=== PATIENT | male | born 1995 | race Two or more races ===

== ENCOUNTER 2019-10-22 20:25 | Observation (INO) | payer OTHER ==
[~2019-10-22] VITALS: Ht 170.2 cm; Wt 62.7 kg
--- NOTE | 2019-10-22 20:29 | NUR ---
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
[2019-10-22] MEDS ORDERED: ASPIRIN 81 MG TABLET EC ONE (20:43)
[2019-10-22] MEDS ORDERED: ASPIRIN 81 MG TABLET CHEW ONE (20:43)
--- NOTE | 2019-10-22 20:45 | NUR ---
EKG DONE IN [facility], MEDICATED WITH ASPIRIN.
[2019-10-22] MEDS ORDERED: ASPIRIN 81 MG TABLET CHEW PO ONE (21:00)
[2019-10-22] MEDS ORDERED: PLEASE ENTER ALLERGIES MC SCH (21:00)
--- NOTE | 2019-10-22 21:01 | NUR ---
lab to bs for draw.
--- NOTE | 2019-10-22 21:11 | NUR ---
pt to ed for sob afterworking out for first time in months. pt presents with hr in 120s-140s and is very anxious and restless. pt connected to all monitors. vss. ua and blood sent to lab. awaiting results and edmd assessment.
[2019-10-22 21:17] LABS: MD YES; MEAN CORPUSCULAR HEMOGLOBIN 29.3 pg (27.5-34.5); MEAN CORPUSCULAR HGB CONC 33.2 g/dL (33.2-36.2); MEAN CORPUSCULAR VOLUME 88.2 fL (81-97); MEAN PLATELET VOLUME 9.2 fL (7.4-10.4); PLATELET COUNT 281 x10^3/uL (130-400); RED BLOOD COUNT 6.02 x10^6/uL (4.38-5.82); RED CELL DISTRIBUTION WIDTH 13.4 % (9.4-14.8)
[2019-10-22 21:28] LABS: ALANINE AMINOTRANSFERASE 29 U/L (12-78); ALBUMIN 4.9 g/dL (3.4-5.0); ANION GAP 12 mmol/L (5-15); CALCIUM 10.1 mg/dL (8.5-10.1); CHLORIDE 107 mmol/L (98-107); CREATININE 1.25 mg/dL (0.7-1.3)
[2019-10-22 21:31] LABS: BAND#(MANUAL) 0.21 x10^3/uL; BANDS%(MANUAL) 1 % (0-7); LYMPHS% (MANUAL) 11 % (22-44); MONOS#(MANUAL) 1.46 x10^3/uL (0.3-2.7); MONOS% (MANUAL) 7 % (2-9); SEG#(MANUAL) 16.93 x10^3/uL (1.8-6.8); SEGS% (MANUAL) 81 % (42-75)
[2019-10-22 21:32] LABS: <PLATELET ESTIMATE> ADEQUATE; <PLT MORPHOLOGY> NORMAL PLT MORPH; <RBC MORPHOLOGY> NORMAL; ALKALINE PHOSPHATASE 77 U/L (45-117); TOTAL PROTEIN 8.7 g/dL (6.4-8.2); TROPONIN I < 0.015 ng/mL (0.000-0.045)
[2019-10-22 21:36] LABS: AMPHETAMINE SCREEN, URINE Negative (Negative); BARBITURATE SCREEN, URINE Negative (Negative); BENZODIAZEPINE SCREEN, URINE Negative (Negative); CANNABINOID SCREEN, URINE Positive (Negative); COCAINE SCREEN, URINE Negative (Negative); METHADONE SCREEN, URINE Negative (Negative); OPIATE SCREEN, URINE Negative (Negative)
[2019-10-22] MEDS ORDERED: LORazepam 2 MG/ML, 1ML ONE (21:44)
--- NOTE | 2019-10-22 21:58 | NUR ---
pt resting in room with family at bs. hans darling. pt remains anxious. piv established and bc x1 drawn. orthodontic laboratory technician to bs to draw 2nd set bc. pt medicated per mar for anxiety and ivf started. no needs expressed. call light within reach. awaiting further orders.
[2019-10-22] MEDS ORDERED: SODIUM CHLORIDE 0.9% 1,000ML IVBOLUS ONE ×2 (22:00→23:30)
[2019-10-22] MEDS ORDERED: LORazepam 2 MG/ML, 1ML IVPush ONE (22:00)
--- NOTE | 2019-10-22 22:15 | NUR ---
REPORT RECEIVED FROM GRACE ASENCIO
--- NOTE | 2019-10-22 22:27 | NUR ---
PT RESTING ON [facility] WITH FAMILY AT FOR SUPPORT. IVF COMPLETED. AWAITING LAB RESULTS
[2019-10-22] MEDS ORDERED: CEFTRIAXONE PMX 1GM/50ML 50 ML IVPB ONE (23:30)
[2019-10-22] MEDS ORDERED: AZITHROMYCIN 500 MG in SODIUM CHLORIDE 0.9% 250 ML IV ONE (23:30)
[2019-10-22] MEDS ORDERED: CEFTRIAXONE PMX 1GM/50ML 50 ML ONE (23:43)
--- NOTE | 2019-10-22 23:53 | NUR ---
PT RESTING ON [facility] WITH FAMILY AT BS. MEDICATED PER MAR. CALL LIGHT WITHIN REACH,. ALL MONITORING PLACE. PT DENIES FURTHER NEEDS AT THIS TIME.
[2019-10-23] MEDS ORDERED: SODIUM CHLORIDE 0.9% 1,000 ML IV ONE
[2019-10-23] MEDS ORDERED: OMNIPAQUE 350 MG/ML, 100ML BOTTLE ONE (00:04)
[2019-10-23] MEDS ORDERED: ONDANSETRON 2MG/ML, 2ML IVPush PRN (00:30)
[2019-10-23] MEDS ORDERED: ACETAMINOPHEN 325 MG TABLET PO PRN (00:30)
--- NOTE | 2019-10-23 00:32 | NUR ---
PT PLACED ON 3L NC PER [facility]. PT O2 SAT AT 100%. VSS. PT MEDICATED PER DEC, UPDATED ON POC.
--- NOTE | 2019-10-23 00:39 | NUR ---
REPORT GIVEN TO GRACE ORANTES.
[2019-10-23 02:18] VITALS: BP 130/72
[2019-10-23 07:43] VITALS: BP 111/63
[2019-10-23 12:54] LABS: RAPID INFLUENZA A Negative (Negative); RAPID INFLUENZA B Negative (Negative)
[2019-10-23 13:00] VITALS: BP 111/72
[2019-10-23 21:00] VITALS: BP 112/74
[2019-10-24 01:57] VITALS: BP 125/68
[2019-10-24] MEDS: POTASSIUM CHLORIDE 20 MEQ TAB.ER.PRT PO SCH ×2 (05:51→07:44)
[2019-10-24 08:15] VITALS: BP 129/80
[2019-10-24 09:26] LABS: ANION GAP 8 mmol/L (5-15); CALCIUM 9.2 mg/dL (8.5-10.1); CHLORIDE 110 mmol/L (98-107); CREATININE 0.98 mg/dL (0.7-1.3)
[2019-10-24 09:46] LABS: MD YES; MEAN CORPUSCULAR HEMOGLOBIN 29.7 pg (27.5-34.5); MEAN CORPUSCULAR HGB CONC 33.4 g/dL (33.2-36.2); MEAN CORPUSCULAR VOLUME 89.1 fL (81-97); MEAN PLATELET VOLUME 8.9 fL (7.4-10.4); PLATELET COUNT 249 x10^3/uL (130-400); RED BLOOD COUNT 5.57 x10^6/uL (4.38-5.82); RED CELL DISTRIBUTION WIDTH 13.5 % (9.4-14.8)
[2019-10-24 09:48] LABS: <PLATELET ESTIMATE> ADEQUATE; <PLT MORPHOLOGY> NORMAL PLT MORPH; <RBC MORPHOLOGY> NORMAL; BASOS#(MANUAL) 0.08 x10^3/uL (0-0.1); BASOS% (MANUAL) 1 % (0-1); EOS#(MANUAL) 0.15 x10^3/uL (0.0-0.4); EOS% (MANUAL) 2 % (1-7); LYMPH#(MANUAL) 2.81 x10^3/uL (1-3.4); LYMPHS% (MANUAL) 37 % (22-44); MONOS#(MANUAL) 0.38 x10^3/uL (0.3-2.7); MONOS% (MANUAL) 5 % (2-9); SEG#(MANUAL) 4.18 x10^3/uL (1.8-6.8); SEGS% (MANUAL) 55 % (42-75)
== END 2019-10-24 13:24 | disposition home or self-care (01) ==
LOC: ED 23:27 → INTOOBSV 10-23 → EDIP 10-23 → 5SO 10-23 01:35 → DCLOUNGE 10-24 13:15
PROVIDERS: ADMIT Internal Medicine; ATTEND Internal Medicine
DX: J93.83 Other pneumothorax (principal); A41.9 Sepsis, unspecified organism; D72.829 Elevated white blood cell count, unspecified; R00.0 Tachycardia, unspecified; J96.00 Acute respiratory failure, unspecified whether with hypoxia or hypercapnia; J15.9 Unspecified bacterial pneumonia; F12.10 Cannabis abuse, uncomplicated; J98.2 Interstitial emphysema; Z79.899 Other long term (current) drug therapy
CPT/HCPCS: 36415; 71045; 71046; 71275; 80048; 80053; 80307; 83605; 84145; 84484; 85025; 87040; 87400; 93005; 96365; 96366; 96367; 96375; 99285; G0378; J0456; J0696; J2060; J7030; J7050; Q9967

== ENCOUNTER 2019-12-13 13:00 | Emergency (ER) | payer OTHER ==
[~2019-12-13] VITALS: Ht 162.6 cm; Wt 62.2 kg
[2019-12-13 13:41] VITALS: BP 136/92
--- NOTE | 2019-12-13 13:47 | NUR ---
Mehnaz bedoyamarcos in [facility] - 12/13/19 at 1349 by MARLENE NOT IN [facility] @ 1340
[2019-12-13 14:24] LABS: MICROSCOPIC NOT IND
[2019-12-13 14:39] LABS: CULTURE INDICATED? NO
--- NOTE | 2019-12-13 15:45 | NUR ---
PATIENT TO ROOM, NAD NOTED. AWAITING FOR FURTHER EVAL. WILL CONTINUE TO MONITOR.
--- NOTE | 2019-12-13 16:58 | NUR ---
PATIENT CONTINUES TO BE IN ROOM. AWAITING FOR ERP TO SEE PATIENT. WILL CONTINUE TO MONITOR.
== END 2019-12-13 17:47 | disposition home or self-care (01) ==
LOC: ED 17:17
DX: N43.3 Hydrocele, unspecified (principal); J02.9 Acute pharyngitis, unspecified; R00.0 Tachycardia, unspecified
CPT/HCPCS: 76870; 81003; 93975; 99284; 99285